=== PATIENT | female | born 1950 | race Caucasian/White ===

== ENCOUNTER → 2017-03-24 | Outpatient (CLI) | payer BC ==
[~2017-03-24] VITALS: Ht 160 cm; Wt 68.0 kg
[~2017-03-24] MED LIST: REGADENOSON 0.4 MG/5 ML DISP.SYRIN. IV ONE
--- NOTE | 2017-03-24 12:50 | RAD ---
APPROVED REPORT Test Type: Pharmacological Stress Nurse/Tech: Shabana Goodrich R.N. Test Indications: Abnormal Calcium Score, CT, Exertional dyspnea Cardiac History: None reported Medications: SEE EMR Medical History: Emphysema,smoker x47 years, quit 3 years ago Resting ECG: SB Resting Heart Rate: 49 bpm Resting Blood Pressure: 161/62mmHg Pretest Chest Pain: None Nurse/Tech Notes S1S2, lungs CTA but diminished throughout, denied chest pain, dizziness or SOA. Consent: The procedure was explained to the patient in lay terms. Informed consent was witnessed. Chadwick eout was entered into [employer]. History and Stress Test performed by Shabana Goodrich R.N. Pharm. Details Pharmacologic stress testing was performed using 0.4mg per 5ml of regadenoson given intravenously ove r 7-10 seconds. Stress Symptoms Slightly SOA. POST EXERCISE Reason for Termination: Infusion complete Max HR: 97 bpm Max Blood Pressure: 160/62mmHg Blood Pressure response to exercise: Normal blood pressure response during stress. Heart Rate response to exercise: Normal Chest Pain: No. Arrhythmia: No. ST Change: No. INTERPRETATION Stress EKG Conclusion: Baseline EKG showed sinus rhythm. No ischemic changes at peak stress. No arr hythmias. Imaging Protocol IMAGE PROTOCOL: Rest Tc-99m/stress Tc-99m 1 day Rest: Stress: Viability: Radiopharm.Tc99m IrltmsodsIn78l Sestamibi Dose11.4mCi 32.1mCi Duration 15min. 10min. Img Date 03/24/2017 03/24/2017 Inj-Img [id number]. 75min. Rest Admin Site:IV - Right AntecubitalAdministrator:CARISSA Guzman Stress Admin Site: IV - Right AntecubitalAdministrator: BROCK Robles, ARRT (R)(N) STRESS DATA End Diast. Vol.48.0mlAv. Heart Rate65.0bpm End Syst. Vol.5.0mlCO Index BSA0.0L/min Myocardial Mass91.0gEject. Dduposmm56.0% Stress Rates Pk. Fill Rate3.64EDV/secLVtime Pk. Fill 257.70msec Pk. Empty Rate5.05ESV/secLVtime Pk. Ctpis571.47msec 1/3 Pk. Fill1.42EDV/sec Stress Scores Regional WT0.00Summed WT0.00 Regional WM0.00Summed WM0.00 Study quality was good. Left Ventricular size was Normal at Rest and Stress. Lung uptake was Normal. Left Ventricular ejection fraction is >80%. The rest and stress images show normal perfusion, normal contraction and thickening. LV Perf. Quant 17 Seg. SSS0.00 17 Seg. SRS0.00 17 Seg. SDS0.00 Stress Defect Extent (% LAD)0.00Rest Defect Extent (% LAD)0.00Rev. Defect Extent (% LAD)0.00 Stress Defect Extent (% LCX) 0.00Rest Defect Extent (% LCX)0.00Rev. Defect Extent (% LCX)0.00 Stress Defect Extent (% RCA)0.00Rest Defect Extent (% RCA)0.00Rev. Defect Extent (% RCA)0.00 Stress Defect Extent (% ROOSEVELT)0.00Rest Defect Extent (% ROOSEVELT)0.00Rev. Defect Extent (% ROOSEVELT)0.00 Conclusion 1. Regadenoson cardioisotope stress test did not show any evidence of ischemia or infarct. 2. Normal left ventricular systolic function with ejection fraction calculated at >80%. 3. Low risk for cardiac events.
== END | disposition home or self-care (01) ==
LOC: NM 07:52
PROVIDERS: ATTEND Internal Medicine Cardiovascular Disease
DX: R93.1 Abnormal findings on diagnostic imaging of heart and coronary circulation (principal); R06.02 Shortness of breath; R06.00 Dyspnea, unspecified; E78.2 Mixed hyperlipidemia; Z82.49 Family history of ischemic heart disease and other diseases of the circulatory system
CPT/HCPCS: 78452; 93017; 96374; 96375; 96376; A9500; J2785

== ENCOUNTER → 2018-05-04 | Outpatient (CLI) | payer BC | END | disposition home or self-care (01) | LOC: KCIC MAMMO 10:25 | DX: Z12.31 Encounter for screening mammogram for malignant neoplasm of breast (principal) | CPT/HCPCS: 77063; 77067 ==

== ENCOUNTER → 2018-05-25 | Outpatient (CLI) | payer BC ==
--- NOTE | 2018-05-25 18:06 | KCIC ---
CERVICAL SPINE 5V, HIP LEFT 2 VIEW, LUMBAR SPINE MIN 4V History: Left hip pain for about 3 months. Bilateral low back pain with sciatica for about 3 months. Paresthesia right arm for about 6 months.. Comparison: None are available Two-view left hip No acute fracture. No bone destruction. Joint space appears intact. IMPRESSION: No acute radiographic finding. Five-view cervical spine Vertebral body height maintained. No evidence of acute fracture or subluxation. Degenerative spondylosis, greatest at C5-C6 with posterior osteophytes. Prevertebral soft tissues within normal limits. Mild osteophytes encroach upon the neural foramina at the lower levels. IMPRESSION: Degenerative spondylosis, greatest at C5-C6. MR could provide further evaluation of stenosis/impingement. Five-view lumbar spine Mild degenerative spurring at multiple levels. Mild loss of disc height. Vertebral body height maintained without evidence of acute fracture. No significant subluxation. Aortic vascular calcification. Surgical clips in the right upper quadrant. No evidence of spondylolysis. IMPRESSION: Degenerative spondylosis. Electronically signed by: Hardy Marsh MD (05/25/2018 6:02 PM) [id number]
== END | disposition home or self-care (01) ==
LOC: KCIC 10:42
PROVIDERS: ATTEND Family Medicine
DX: M47.896 Other spondylosis, lumbar region (principal); M47.892 Other spondylosis, cervical region; M25.78 Osteophyte, vertebrae; M25.552 Pain in left hip; R20.2 Paresthesia of skin; E78.2 Mixed hyperlipidemia; Z87.891 Personal history of nicotine dependence
CPT/HCPCS: 72050; 72110; 73502